=== PATIENT | female | born 1960 | race Caucasian/White ===

== ENCOUNTER 2018-03-22 09:05 | Emergency (ER) | payer BC, OTHER ==
[2018-03-22 10:51] VITALS: BP 130/83
--- NOTE | 2018-03-22 11:58 | RAD ---
INDICATION: Right hip pain for 6 days. COMPARISON: There are no relevant prior studies available for comparison. TECHNIQUE: An AP view of the pelvis and frontal and lateral views of the right hip were obtained. FINDINGS: The bones are in normal alignment. No fracture is seen. 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 There is a faint calcific density which projects superior to the right greater trochanter possibly indicating calcific tendinitis. IMPRESSION: POSSIBLE RIGHT HIP CALCIFIC TENDINITIS.
--- NOTE | 2018-03-22 12:10 | ED ---
Lower Extremity - HPI Summary HPI Summary: 57 yr old with right side posterior pelvis pain in sciatic notch area, and radiates down the posterior right leg. Today right knee also hurts when puts full weight on hip, pelvis. No swelling, fever, chills, effuison. She can range her right knee fully without any pain at all. No falls or injuries. She has had the same kind of pain in posterior pelvis going down back of the leg in the past as well. No numbness, tingling or weakness in the legs. No bowel or bladder incontinence. - History of Current Complaint Chief Complaint: UCLowerExtremity Stated Complaint: LOW BACK/LEG PAIN AND RIGHT KNEE Time Seen by Provider: 03/22/18 11:16 Pain Intensity: 2 - Allergies/Home Medications Allergies/Adverse Reactions: Allergies Allergy/AdvReac Type Severity Reaction Status Date / Time dryer sheets Allergy Hives Uncoded 03/22/18 10:53 PMH/Surg Hx/FS Hx/Imm Hx - Surgical History Surgery Procedure, Year, and Place: x 2; lumbar laminectomy/ disc replacement; appendectomy Infectious Disease History: No Infectious Disease History: Denies: Traveled Outside the [place] in Last 30 Days - Social History Alcohol Use: Occasionally Substance Use Type: Reports: None Smoking Status (MU): Heavy Every Day Tobacco Smoker Review of Systems Constitutional: Negative Positive: Other - right posterior pelvis and posterior leg pain All Other Systems Reviewed And Are Negative: Yes Physical Exam Triage Information Reviewed: Yes Vital Signs On Initial Exam: Initial Vitals Temp Pulse Resp BP Pulse Ox 98.4 F 57 18 130/83 100 03/22/18 10:37 03/22/18 10:37 03/22/18 10:37 03/22/18 10:37 03/22/18 10:37 Vital Signs Reviewed: Yes Appearance: Positive: Well-Appearing, No Pain Distress Skin: Positive: Warm, Skin Color Reflects Adequate Perfusion Head/Face: Positive: Normal Head/Face Inspection Eyes: Positive: EOMI Respiratory/Lung Sounds: Positive: Clear to Auscultation, Breath Sounds Present Cardiovascular: Positive: RRR. Negative: Murmur Abdomen Description: Positive: Nontender Musculoskeletal: Positive: Strength/ROM Intact, Other - some tendernesss over the right sciatic notch. No effusion to the right knee, no redness no tenderness. No focal tenderness over the right hip. Neurological: Positive: Sensory/Motor Intact, Alert, Oriented to Person Place, Time, CN Intact II-III, Normal Gait, Speech Normal Diagnostics - Vital Signs Vital Signs Temp Pulse Resp BP Pulse Ox 03/22/18 10:37 98.4 F 57 18 130/83 100 - Laboratory Lab Statement: Any lab studies that have been ordered have been reviewed, and results considered in the medical decision making process. - Radiology right hip, pelvis Xray Interpretation: Positive (See Comments) Radiology Interpretation Completed By: Radiologist Lower Extremity Course/Dx - Course Course Of Treatment: 57 yr old female with calcific tendonitis right hip, and also element of sciatica. - Diagnoses Provider Diagnoses: Sciatica, Tendonitis of right hip Discharge - Sign-Out/Discharge Documenting (check all that apply): Patient Departure All imaging exams completed and their final reports reviewed: Yes - Discharge Plan Condition: Good Disposition: HOME Prescriptions: Cyclobenzaprine TAB* [Flexeril 10 MG TAB*] 10 mg PO TID PRN #10 tab PRN Reason: Pain - Unrelieved Ibuprofen TAB* [Motrin TAB* 600 MG] 600 mg PO Q8H PRN #20 tab PRN Reason: Pain Patient Education Materials: Sciatica (ED), Tendinitis (ED) Forms: *Work Release Referrals: Rex Grajeda MD [Medical Doctor] - 2 Days Rashmi Pillai MD [Primary Care Provider] - 2 Days - Billing Disposition and Condition Condition: GOOD Disposition: Home
== END 2018-03-22 12:42 | disposition home or self-care (01) ==
LOC: UCCORT 09:05
DX: M54.30 Sciatica, unspecified side (principal); M76.9 Unspecified enthesopathy, lower limb, excluding foot; F17.210 Nicotine dependence, cigarettes, uncomplicated
CPT/HCPCS: 99212; G0463

== ENCOUNTER 2019-05-30 16:54 | Emergency (ER) | payer BC ==
[2019-05-30 17:31] VITALS: BP 126/74
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
[2019-05-30] MEDS ORDERED: Ibuprofen TAB* 400 MG PO ONE (19:05)
--- NOTE | 2019-05-31 12:35 | UC ---
- Progress Note Progress Note: Final x-ray report reviewed X-ray of the right elbow:There is no displaced fracture. There is an enthesophyte of the olecranon. IMPRESSION: NO ACUTE OSSEOUS INJURY. IF SYMPTOMS PERSIST, RECOMMEND REPEAT IMAGING. X-ray of the right wrist:osteoarthritis of the first CMC and STT joints. There is osteoarthritis of the first MCP joint. IMPRESSION: OSTEOARTHRITIS. NO ACUTE OSSEOUS INJURY. IF SYMPTOMS PERSIST, RECOMMEND REPEAT IMAGING. Patient was diagnosed with de Quervain's tenosynovitis and lateral epicondylitis. No change in plan Course/Dx - Diagnoses Provider Diagnoses: Tenosynovitis, de Quervain, Right wrist pain, Right tennis elbow Discharge ED - Sign-Out/Discharge Documenting (check all that apply): Post-Discharge Follow Up All imaging exams completed and their final reports reviewed: Yes - Discharge Plan Condition: Stable Disposition: HOME Patient Education Materials: Tennis Elbow (ED), De Quervain Disease (ED) Forms: *Work Release Referrals: [facility] [Provider Group] - 3 Days Rashmi Pillai MD [Primary Care Provider] - 1 Week Additional Instructions: 1-Please take Ibuprofen PO q6-8hr prn after meals as directed to alleviate pain and swelling. 2-Please apply ice, keep your wrist and elbow immobilized with the splint and sling . Avoid heavy lifting, repetitive movements or strenuous exercise. 3- Please f/u with Orthopedic from Sports medicine or your PCP in 3 days if not improvement of symptoms for further evaluation and treatment. - Billing Disposition and Condition Condition: STABLE Disposition: Home
== END 2019-05-30 20:01 | disposition home or self-care (01) ==
LOC: UCCORT 16:54
DX: M65.4 Radial styloid tenosynovitis [de Quervain] (principal); M25.531 Pain in right wrist; M77.11 Lateral epicondylitis, right elbow; M19.031 Primary osteoarthritis, right wrist; F17.200 Nicotine dependence, unspecified, uncomplicated
CPT/HCPCS: 99213; A9270-GY; G0463

== ENCOUNTER 2019-08-11 09:25 | Emergency (ER) | payer BC ==
[2019-08-11 09:49] VITALS: BP 114/74
--- NOTE | 2019-08-11 10:03 | UC ---
FLU HPI - HPI Summary HPI Summary: 58-year-old female who has had head congestion and cold symptoms for 6 days with increasing sinus pressure and postnasal drainage today. She mentioned to the nurse she was short of breath however she didn't findings that to me as not being able to breathe through her nose that her lungs are not involved and she does not feel she has any difficulty breathing other than her nasal congestion. She is a smoker - History of Current Complaint Chief Complaint: UCRespiratory Stated Complaint: CONGESTION,SORE THROAT Time Seen by Provider: 08/11/19 09:58 Hx Obtained From: Patient ?: No Onset/Duration: Gradual Onset Severity Currently: Moderate Severity Initially: Mild Pain Intensity: 3 Associated Signs & Symptoms: Positive: Fever, Nasal Congestion - Allergy/Home Medications Allergies/Adverse Reactions: Allergies Allergy/AdvReac Type Severity Reaction Status Date / Time dryer sheets Allergy Hives Uncoded 08/11/19 09:49 Home Medications: Home Medications Guaifenesin/Pseudoephedrne HCl [Mucinex D ER 600-60 mg Tablet] 1 each PO BID PRN 08/11/19 [History Confirmed 08/11/19] PMH/Surg Hx/FS Hx/Imm Hx Previously Healthy: Yes - Surgical History Surgical History: Yes Surgery Procedure, Year, and Place: x 2; lumbar laminectomy/ disc replacement; appendectomy - Family History Family History: stomach cancer and lung cancer - Social History Occupation: Employed Full-time Lives: With Family Alcohol Use: Occasionally Substance Use Type: None Smoking Status (MU): Heavy Every Day Tobacco Smoker Review of Systems All Other Systems Reviewed And Are Negative: Yes Constitutional: Positive: Fever ENT: Positive: Nasal Discharge, Sinus Congestion, Sinus Pain/Tenderness Is Patient Immunocompromised?: No Physical Exam Triage Information Reviewed: Yes Appearance: Well-Appearing, No Pain Distress, Well-Nourished Vital Signs: Initial Vital Signs Temp 99.4 F 08/11/19 09:42 Pulse 72 08/11/19 09:42 Resp 28 08/11/19 09:42 BP 114/74 08/11/19 09:42 Pulse Ox 100 08/11/19 09:42 Vital Signs Reviewed: Yes Eyes: Positive: Conjunctiva Clear ENT: Positive: Pharynx normal - Yellow purulent postnasal drainage, Nasal congestion, Nasal drainage - Yellow nasal coryza mostly on the right side, TMs normal, Sinus tenderness - Bilateral maxillary sinus tenderness., Uvula midline Neck: Positive: Supple, Nontender, No Lymphadenopathy Respiratory: Positive: Lungs clear, Normal breath sounds, No respiratory distress, No accessory muscle use Cardiovascular: Positive: RRR, No Murmur, Pulses Normal, Brisk Capillary Refill Musculoskeletal Exam: Normal Neurological Exam: Normal Psychological Exam: Normal Skin Exam: Normal Flu Course/Dx - Course Course Of Treatment: Patient is comfortable here. Rapid flu test: Negative Rapid strep test: Negative - Differential Dx/Diagnosis Provider Diagnosis: Sinusitis Discharge ED - Sign-Out/Discharge Documenting (check all that apply): Patient Departure All imaging exams completed and their final reports reviewed: No Studies - Discharge Plan Condition: Fair Disposition: HOME Prescriptions: Amoxicillin PO (*) [Amoxicillin 875 MG (*)] 875 mg PO BID 10 Days #20 tab Patient Education Materials: Sinusitis (ED) Forms: *Work Release Referrals: Rashmi Pillai MD [Primary Care Provider] - Additional Instructions: Increase fluids, [id number] cold medicine as directed, follow-up with your primary care provider in 3 or 4 days if no improvement. - Billing Disposition and Condition Condition: FAIR Disposition: Home
[2019-08-11 10:19] LABS: Influenza A Molecular NEGATIVE (Negative); Influenza B Molecular NEGATIVE (Negative)
== END 2019-08-11 10:22 | disposition home or self-care (01) ==
LOC: UCCORT 09:25
DX: J32.9 Chronic sinusitis, unspecified (principal); F17.290 Nicotine dependence, other tobacco product, uncomplicated; Z91.09 Other allergy status, other than to drugs and biological substances
CPT/HCPCS: 87651; 99212; G0463